=== PATIENT | male | born 1955 | race Caucasian/White ===

== ENCOUNTER 2018-03-13 13:24 | Outpatient (CLI) | payer OTHER ==
[~2018-03-13 13:24] MED LIST: Iopamidol 370 76% 100 ML VIAL ONE
--- NOTE | 2018-03-13 15:58 | CT ---
CT ABDOMEN WITH AND WITHOUT IV CONTRAST CT PELVIS WITH AND WITHOUT IV CONTRAST: DATE: 03/13/2018. HISTORY: Microhematuria. Right groin pain for 7 years. Left-sided back pain for a few weeks. COMPARISON: None available. FINDINGS: No renal or ureteral calculi are seen bilaterally, and there is no evidence of hydronephrosis. There is a slight increased density lesion at the medial aspect mid portion right kidney which measures ap proximately 2 cm. The attenuation coefficient on precontrast images is 39 with postcontrast Hounsfie ld units of 72 on portal venous phase of imaging which suggests mild enhancement of this slight incre ased density lesion. Renal cell carcinoma cannot be excluded. A subcentimeter too small to characterize hypodense lesion is seen in the mid portion left kidney. N o additional or enhancing renal mass is visualized. The urinary bladder is incompletely distended, b ut normal in appearance. No definite filling defects are seen within the renal collecting systems or involving the bilateral ureters on delayed phase of imaging. The lung bases, liver, spleen, pancreas, and bilateral adrenal glands demonstrate a normal CT appeara nce. The appendix is visualized and normal in caliber. Loops of bowel are normal in caliber. No enlarged lymph nodes are seen by CT size criteria. There is a mildly prominent left periaortic ly mph node measuring 1 cm in short axis dimension. Minimal atherosclerotic plaque and calcifications are seen within the infrarenal abdominal aorta and involving the proximal common iliac arteries. IMPRESSION: 1. Increased density lesion medial aspect mid portion right kidney measuring 2 cm with suggestion of mild enhancement on portal venous phase of imaging. Neoplastic process should be considered. 2. Subcentimeter too small to characterize hypodense lesion left kidney. 3. No renal or ureteral calculi are seen bilaterally. CODE T
== END 2018-03-13 13:25 | disposition home or self-care (01) ==
LOC: BICCT 13:24
PROVIDERS: ATTEND Urology
DX: R31.29 Other microscopic hematuria (principal)
CPT/HCPCS: 74178; Q9967

== ENCOUNTER 2018-04-01 08:07 | Day surgery (SDC) | payer OTHER ==
[2018-03-31 13:21] VITALS: BMI 29.4
[2018-04-01 08:29] LABS: Hemoglobin 15.7 g/dL (14.0-18.0); Mean Corpuscular HGB CONC 33.5 g/dL (32.0-36.0); Mean Corpuscular Hemoglobin 31.2 pg (27.0-31.0); Mean Corpuscular Volume 93.1 fL (78.0-98.0); Mean Platelet Volume 6.2 fL (7.4-10.4); Platelet Count 247 thou/uL (130-400); RBC Distribution Width 11.8 % (11.5-14.5); Red Blood Cell (RBC) Count 5.05 mill/uL (4.70-6.10); White Blood Cell (WBC) Count 10.1 thou/uL (4.8-10.8)
[2018-04-01 08:42] LABS: INR-International Normal Ratio 0.9; PTT 34.6 SEC (22.9-36.1); Prothrombin Time 12.4 SEC (12.0-14.7)
[2018-04-01 09:10] LABS: Band 4 % (5-11); Eosinophils 1 % (0-10); Lymphocytes 18 % (21-51); MDiff Complete? YES; Monocytes 1 % (0-10); Neutrophil 42 % (42-75); RBC Morphology Normal; Reactive Lymphocytes 34 % (0-10)
[2018-04-01] MEDS ORDERED: Sodium Bicarbonate 2.5 MEQ/5 ML VIAL ONE (09:20)
[2018-04-01] MEDS ORDERED: Fentanyl 100 MCG/2 ML VIAL ONE (09:21)
[2018-04-01] MEDS ORDERED: Midazolam HCl 2 mg/2 ml Vial ONE (09:21)
[2018-04-01 09:47] VITALS: BP 128/78; TEMP 98
--- NOTE | 2018-04-01 12:37 | CT ---
CT GUIDED RIGHT RENAL MASS BIOPSY: History: Right renal mass. FINDINGS: After explaining the procedure and answering all questions, the patient was placed on the CT table in right lateral decubitus position. Limited imaging was performed. Posterior approach was planned. Amador rile technique, buffered local anesthesia, CT guidance, and a right posterior approach were used to c arefully advance the tip of 19 gauge Trocar needle to the level of the mass at the medial aspect supe rior pole right kidney. Position was confirmed with CT imaging. A total of three 20 gauge core biopsy specimens were obtained and submitted to Dr. Perry from patholog y for evaluation. Specimen adequacy was confirmed. Needle was removed. Post procedure imaging shows n o evidence of complication. Patient tolerated the procedure well and was returned to the holding area in good condition for further monitoring. IMPRESSION: Technically successful CT guided biopsy right renal mass. Pathology is pending. POS: [facility]
[2018-04-01 14:58] LABS: MONO NEGATIVE CONTROL ZONE White (Negative) (White); MONO POSITIVE CONTROL Pink Line (Positive) (PINK/RED); Mononucleosis NEGATIVE (NEGATIVE)
== END 2018-04-01 11:35 | disposition home or self-care (01) ==
LOC: RAD 08:07
PROVIDERS: ATTEND Radiology Diagnostic Radiology
PROC: 0TB03ZX Excision of Right Kidney, Percutaneous Approach, Diagnostic (ICD-10-PCS; principal; 2018-04-01)
DX: C64.1 Malignant neoplasm of right kidney, except renal pelvis (principal); Z88.0 Allergy status to penicillin; Z87.891 Personal history of nicotine dependence; Z98.890 Other specified postprocedural states
CPT/HCPCS: 36415; 50200; 77002; 85025; 85610; 85730; 86308; 88305; 88333; 88341; 88342; J2250; J3010

== ENCOUNTER 2018-04-02 07:01 | Observation (INO) | payer OTHER ==
[2018-04-02 07:58] LABS: Hemoglobin 13.1 g/dL (14.0-18.0); Mean Corpuscular Hemoglobin 31.6 pg (27.0-31.0); Mean Corpuscular Volume 93.1 fL (78.0-98.0); Mean Platelet Volume 6.4 fL (7.4-10.4); Platelet Count 226 thou/uL (130-400); RBC Distribution Width 11.5 % (11.5-14.5); Red Blood Cell (RBC) Count 4.14 mill/uL (4.70-6.10); White Blood Cell (WBC) Count 9.7 thou/uL (4.8-10.8)
[2018-04-02 08:11] LABS: ALT (SGPT) 19 U/L (8-55); AST (SGOT) 18 U/L (5-34); Albumin 3.8 g/dL (3.5-5.0); Alkaline Phosphatase 67 U/L (40-150); Anion Gap 16 mmol/L (10-20); BUN (Urea Nitrogen) 17 mg/dL (8.4-25.7); Bilirubin, Total 0.3 mg/dL (0.2-1.2); Calc. Creatinine Clearance 0 mL/min (70-130); Calcium 8.7 mg/dL (7.8-10.44); Carbon Dioxide 18 mmol/L (22-29); Chloride 107 mmol/L (98-107); Estimated GFR-MDRD 86; Globulin 2.6 g/dL (2.4-3.5); Glucose 110 mg/dL (70-105); Potassium 4.9 mmol/L (3.5-5.1); Protein, Total 6.4 g/dL (6.0-8.3); Sodium 136 mmol/L (136-145)
[2018-04-02 08:19] LABS: #Basophils 0.1 thou/uL (0.0-0.2); #Eosinphils 0.4 thou/uL (0.0-0.7); #Lymphocytes 3.6 thou/uL (1.20-3.40); #Monocytes 0.5 thou/uL (0.11-0.59); #Neutrophils 5.2 thou/uL (1.40-6.50); %Basophils 1.2 % (0.0-1.0); %Eosinophils 3.9 % (0.0-10.0); %Lymphocytes 36.6 % (21.0-51.0); %Monocytes 4.6 % (0.0-10.0); %Neutrophils 53.6 % (42.0-75.0); Band 6 % (5-11); Eosinophils 7 % (0-10); Lymphocytes 24 % (21-51); MDiff Complete? YES; Monocytes 1 % (0-10); Neutrophil 55 % (42-75); RBC Morphology Normal; Reactive Lymphocytes 6 % (0-10)
--- NOTE | 2018-04-02 08:56 | RAD ---
PORTABLE UPRIGHT FRONTAL CHEST RADIOGRAPH: 04/02/2018 HISTORY: Blood in stool. COMPARISON: 12/20/2005 FINDINGS: The lungs appear clear. The heart and mediastinal contour is unremarkable. IMPRESSION: No acute findings. POS: [facility]
[2018-04-02] MEDS ORDERED: GoLYTELY 4,000 ml Bottle PO SCH (11:45)
[2018-04-02 13:24] LABS: #Basophils 0.1 thou/uL (0.0-0.2); #Eosinphils 0.2 thou/uL (0.0-0.7); #Lymphocytes 3.9 thou/uL (1.20-3.40); #Monocytes 0.4 thou/uL (0.11-0.59); #Neutrophils 4.3 thou/uL (1.40-6.50); %Basophils 0.6 % (0.0-1.0); %Eosinophils 2.4 % (0.0-10.0); %Monocytes 4.2 % (0.0-10.0); %Neutrophils 48.9 % (42.0-75.0); Hemoglobin 12.3 g/dL (14.0-18.0); Mean Corpuscular HGB CONC 34.1 g/dL (32.0-36.0); Mean Corpuscular Hemoglobin 31.8 pg (27.0-31.0); Mean Corpuscular Volume 93.3 fL (78.0-98.0); Mean Platelet Volume 6.2 fL (7.4-10.4); Platelet Count 211 thou/uL (130-400); RBC Distribution Width 11.5 % (11.5-14.5); Red Blood Cell (RBC) Count 3.88 mill/uL (4.70-6.10); White Blood Cell (WBC) Count 8.9 thou/uL (4.8-10.8)
[2018-04-02 14:28] VITALS: BMI 28.0
[2018-04-02] MEDS ORDERED: PROPOFOL 200 MG/20 ML VIAL ONE (15:38)
[2018-04-02] MEDS ORDERED: Lidocaine 1% PF 5 ML VIAL ONE (15:38)
--- NOTE | 2018-04-02 17:24 | HP ---
REASON: Bloody stool. HISTORY OF PRESENT ILLNESS: Mr. Longo is a 62-year-old man, who presented to the ER after noticing bloody stools this morning up to 30 cm. He subsequently had a bowel movement around 6:00 a.m. when he noticed a large amount of blood in the commode and subsequently had a syncopal episode. He did have an outpatient colonoscopy 2 days ago, at which time, 3 polyps were removed, one of which was a large flat polyp in the transverse colon that was removed with saline lift technique using a hot snare and a 6-mm polyp pedunculated that was removed in the sigmoid colon. He did well after the procedure without any bleeding and had outpatient renal biopsy done yesterday. Currently, he is hemodynamically stable. Blood count showed a hemoglobin of 13. PAST MEDICAL HISTORY: 1. Hyperlipidemia. 2. COPD. 3. Cervical spinal surgery. 4. Uvulectomy. 5. Indeterminate right renal lesion, status post biopsy yesterday. MEDICATIONS: At home include; 1. Pravastatin. 2. Fish oil. 3. Lovaza. 4. [place] p.r.n. pain. 5. Pravastatin. 6. Albuterol inhaler. 7. Omeprazole. SOCIAL HISTORY: The patient is . Former smoker, currently vaping. No significant alcohol usage. FAMILY HISTORY: Negative for any known GI problem, liver disease, or GI malignancy. REVIEW OF SYSTEMS: Ten-point review of systems did not show any pertinent positives or negatives. PHYSICAL EXAMINATION: VITAL SIGNS: Temperature is 98.2, blood pressure 110/80, and pulse of 86. GENERAL: He is alert, conversant, no distress. HEENT: Shows anicteric sclerae. Oropharynx clear. NECK: Supple. CV: Shows normal S1 and S2. Regular rate and rhythm. CHEST: Shows breath sounds. ABDOMEN: Soft, nontender. Good bowel sounds. No bruit. No palpable mass or organomegaly. EXTREMITIES: Show no edema. LABORATORY DATA: WBCs 9.7, hemoglobin 13.1, and platelet count of 226. ASSESSMENT: Lower gastrointestinal bleed, likely from post polypectomy bleed. The patient did have colonoscopy with 3 polyps removed 2 days ago. Currently, he is hemodynamically stable with stable blood count. PLAN: 1. We will place in observation. 2. Bowel prep to follow by colonoscopy to control bleeding. Indication including risks, but not limited to, bleeding, perforation, and/or possible side effects of medications were reviewed with the patient and his . Job ID: [id number]
[2018-04-02] MEDS ORDERED: Ondansetron HCl/PF 4 MG/2 ML Vial IVP PRN (21:48)
[2018-04-02] MEDS ORDERED: Promethazine HCl 25 MG/ML VIAL SLOW IVP PRN (21:48)
[2018-04-02] MEDS ORDERED: Promethazine HCl 25 MG/ML VIAL IM PRN (21:48)
[2018-04-02] MEDS ORDERED: Meperidine HCl/PF 25 MG/ML VIAL ONE (22:59)
[2018-04-02] MEDS ORDERED: Fentanyl 100 MCG/2 ML VIAL SLOW IVP PRN (23:03)
[2018-04-02 23:09] LABS: Hemoglobin 12.8 g/dL (14.0-18.0)
--- NOTE | 2018-04-03 00:53 | OP ---
DATE OF PROCEDURE: 04/02/2018 PROCEDURE: Colonoscopy to control hemorrhage. PREMEDICATION: Given by Anesthesiology Department. PREPROCEDURE DIAGNOSES: 1. Hematochezia. 2. Status post colonoscopy with polypectomy, 2 days ago. POSTPROCEDURE DIAGNOSES: 1. Polypectomy sites identified in the cecum, transverse colon, and sigmoid colon. No adherent clot or visible vessel. No signs of active bleeding. 2. Status post Hemoclip placement on the transverse polypectomy ulcer and sigmoid ulcers. DESCRIPTION OF PROCEDURE: Written consents were obtained prior to procedure. After adequate sedation, rectal exam performed was normal. The endoscope was advanced into the sigmoid colon. A copious amount of retained bloody fluid, clots, and the sediments were encountered. The endoscope was advanced slowly with vigorous irrigation and suctioning of the colon eventually to the cecum. There was numerous plugging of the suction channel requiring back flushing. The cecal polypectomy also was identified and appeared small without any stigmata of bleeding. On withdrawal, copious irrigation was performed to visualize entire colonic mucosa. Once in the transverse colon, an 1 cm post polypectomy ulcer was identified. There was no visible vessel or adherent clot. A Hemoclip was then used to approximate the ulcer edge with good approximation and closure. The descending colon appeared normal. Once done in the sigmoid colon, the sigmoid polypectomy also was identified. This also was difficult to be put in position for hemoclip. After numerous attempts, the hemoclip was able to approximate the ulcer edge and deployed. A second hemoclip was also deployed to approximate and close the remainder of the ulcer edge. The colon was thoroughly irrigated. There was no signs of bleeding. The instruments were removed. Total endoscopy time was an hour and 15 minutes. The patient tolerated the procedure well. ASSESSMENT: Three post polypectomy ulcers identified. Two larger ulcers in the transverse and sigmoid colon were closed using hemoclips. PLAN: We will observe the patient overnight. Job ID: [id number]
[2018-04-03 05:42] LABS: #Eosinphils 0.1 thou/uL (0.0-0.7); #Lymphocytes 2.7 thou/uL (1.20-3.40); #Monocytes 0.6 thou/uL (0.11-0.59); %Basophils 0.2 % (0.0-1.0); %Eosinophils 0.4 % (0.0-10.0); %Lymphocytes 16.5 % (21.0-51.0); %Monocytes 3.9 % (0.0-10.0); %Neutrophils 79.1 % (42.0-75.0); Hemoglobin 10.7 g/dL (14.0-18.0); Mean Corpuscular HGB CONC 34.1 g/dL (32.0-36.0); Mean Corpuscular Volume 93.8 fL (78.0-98.0); Mean Platelet Volume 6.5 fL (7.4-10.4); Platelet Count 213 thou/uL (130-400); RBC Distribution Width 11.6 % (11.5-14.5); Red Blood Cell (RBC) Count 3.34 mill/uL (4.70-6.10); White Blood Cell (WBC) Count 16.5 thou/uL (4.8-10.8)
[2018-04-03 07:47] VITALS: BP 113/63; TEMP 99.2
--- NOTE | 2018-04-03 17:09 | DIS ---
DATE OF ADMISSION: 04/02/2018 DATE OF DISCHARGE: 04/03/2018 DISCHARGE DIAGNOSES: 1. Lower gastrointestinal bleed, post polypectomy bleed. 2. Anemia from acute gastrointestinal blood loss. PROCEDURE: Colonoscopy to control hemorrhage on 04/02/2018. HISTORY: Mr. Longo is a 62-year-old man, who presented to the ER on 04/02/2018, with sudden onset of hematochezia, the morning of resulting in a brief syncopal episode. Two days prior, he had undergone an outpatient colonoscopy with polypectomies with removal of 3 polyps. HOSPITAL COURSE: The patient was initially seen in the ER and appears to be in stable condition both hemodynamically and clinically. Once he was started on a bowel prep that was continued on the floor. His initial hemoglobin was 13.1. Subsequent hemoglobin was 13.0 and 12.8. He underwent a bowel prep. A colonoscopy was performed, which showed 3 post polypectomy ulcers, but did not show any active bleeding. The two larger ulcers were approximated with hemostatic clips. He did well postoperatively and was transferred back to the floor. He remained stable without any evidence of recurrent bleeding. His vitals were stable. He was discharged to home on regular diet and to resume his home medication and to start on an [id number] oral medication. His discharge hemoglobin was 10.7. DISPOSITION: The patient is discharged to home. DISCHARGE INSTRUCTIONS: 1. Resume home medication. 2. Start on iron pill OTC once a day. 3. We will follow up blood count next week. Job ID: [id number]
--- NOTE | 2018-04-04 06:56 | EKG ---
Test Reason : Blood Pressure : / mmHG Vent. Rate : 109 BPM Atrial Rate : 109 BPM P-R Int : 144 ms QRS Dur : 078 ms QT Int : 314 ms P-R-T Axes : 034 039 060 degrees QTc Int : 422 ms Sinus tachycardia Otherwise normal ECG When compared with ECG of 02-APR-2018 07:24, (Unconfirmed) Vent. rate has increased BY 46 BPM Confirmed by GIA LIMON ([id number]) on 04/04/2018 6:56:14 AM Referred By: ERNST Confirmed By:GIA LIMON
== END 2018-04-03 10:32 | disposition home or self-care (01) ==
LOC: ERS 07:01 → ERHOLD 10:49 → 2SW 14:27
PROVIDERS: ADMIT Internal Medicine Gastroenterology; ATTEND Internal Medicine Gastroenterology
PROC: 0W3P8ZZ Control Bleeding in Gastrointestinal Tract, Via Natural or Artificial Opening Endoscopic (ICD-10-PCS; principal; 2018-04-03)
DX: K91.840 Postprocedural hemorrhage of a digestive system organ or structure following a digestive system procedure (principal); R19.5 Other fecal abnormalities; D62 Acute posthemorrhagic anemia; E78.5 Hyperlipidemia, unspecified; J44.9 Chronic obstructive pulmonary disease, unspecified; F17.290 Nicotine dependence, other tobacco product, uncomplicated; Z79.899 Other long term (current) drug therapy
CPT/HCPCS: 36415; 71045; 80053; 84484; 85025; 93005; 93010; 96360; 96361; G0378; J0131; J2001; J2175; J2704; J7620